=== PATIENT | male | born 1955 | race Caucasian/White ===

== ENCOUNTER 2016-12-30 17:42 | Emergency (ER) | payer OTHER ==
[~2016-12-30 17:42] MED LIST: ACETAMINOPHEN325 MG PO; AMBIEN5 MG PO; ASPIRIN325 MG PO; CERTAGEN1 EACH PO; COUMADIN5 MG PO; DULCOLAX5 MG PO; FEOSOL325 MG PO; FLOMAX0.4 MG PO; HABITROL21 MG TD; IMDUR 30MG TABL30 MG PO; LOVENOX30 MG/0.3 SQ; LYRICA 50MG CAP50 MG PO; MILK OF MA400 MG/5 M PO; NORVASC2.5 MG PO; PERCOCET 5/3251 TAB PO; PRILOSEC20 MG PO; PROSCAR5 MG PO; SENOKOT-S TABL1 EACH PO; SYNTHROID50 MCG PO
[2016-12-30 19:12] LABS: BASOPHIL 0.3 % (0-2); EOSINOPHIL 7.1 % (0-5); HCT 31.1 % (42.0-52.0); HGB 10.3 g/dl (13.2-18.0); LYMPHOCYTE 28.3 % (15-48); MCH 29.4 pg (25.0-31.0); MCHC 33.1 g/dL (32.0-36.0); MCV 88.9 fL (78.0-100.0); MONOCYTE 9.3 % (0-12); MPV 9.7 fL (6.0-9.5); PLT 284 K/uL (150-400); RDW 15.9 % (11.5-14.0)
[2016-12-30 19:14] LABS: WBC 10.6 K/uL (4.0-10.5)
[2016-12-30 19:31] LABS: ALBUMIN 4.1 g/dL (3.5-5.0); BILIRUBIN - TOTAL 0.2 mg/dL (0.1-1.0); CREATININE 1.5 mg/dL (0.7-1.2); GLOBULIN (CALCULATION) 3.9 g/dL (2.2-4.2); POTASSIUM 3.9 mmol/L (3.5-5.1)
== END 2016-12-30 22:55 | disposition home or self-care (01) ==
LOC: FER 17:42
PROVIDERS: Internal Medicine
DX: L03.116 Cellulitis of left lower limb (principal); J44.9 Chronic obstructive pulmonary disease, unspecified; Z95.1 Presence of aortocoronary bypass graft
CPT/HCPCS: 36415; 80053; 85025; 93971

== ENCOUNTER → 2017-03-15 | Day surgery (SDC) | payer OTHER ==
[2017-03-15 06:41] LABS: INR 1.62 (0.9-1.2); PROTHROMBIN TIME 18.7 SECONDS (11.7-14.0); PTT 51.9 SECONDS (23.2-31.4)
== END | disposition home or self-care (01) ==
LOC: FAS 05:47
PROVIDERS: Anesthesiology
DX: M13.852 Other specified arthritis, left hip (principal); E03.9 Hypothyroidism, unspecified; I10 Essential (primary) hypertension; I25.2 Old myocardial infarction; I25.10 Atherosclerotic heart disease of native coronary artery without angina pectoris; F17.210 Nicotine dependence, cigarettes, uncomplicated; F32.9 Major depressive disorder, single episode, unspecified; M19.90 Unspecified osteoarthritis, unspecified site; Z79.899 Other long term (current) drug therapy; Z98.890 Other specified postprocedural states; Z79.82 Long term (current) use of aspirin; Z95.1 Presence of aortocoronary bypass graft; Z86.73 Personal history of transient ischemic attack (TIA), and cerebral infarction without residual deficits
CPT/HCPCS: 36415; 76000; 85610; 85730; J1040; J2704; Q9962

== ENCOUNTER 2017-03-20 15:46 | Day surgery (SDCO) | payer OTHER ==
[~2017-03-20] VITALS: Ht 185.4 cm; Wt 107.5 kg
[2017-03-20 16:18] LABS: BASOPHIL 0.2 % (0-2); EOSINOPHIL 1.3 % (0-5); HCT 30.6 % (42.0-52.0); HGB 10.4 g/dl (13.2-18.0); LYMPHOCYTE 15.4 % (15-48); MCH 29.5 pg (25.0-31.0); MCV 86.9 fL (78.0-100.0); MONOCYTE 9.8 % (0-12); MPV 10.7 fL (6.0-9.5); NEUTROPHIL 73.3 % (41-80); PLT 298 K/uL (150-400); RBC 3.52 M/uL (4.70-6.00); RDW 15.7 % (11.5-14.0)
[2017-03-20 16:21] LABS: WBC 15.8 K/uL (4.0-10.5)
[2017-03-20 16:23] LABS: INR 1.71 (0.9-1.2); PROTHROMBIN TIME 19.5 SECONDS (11.7-14.0); PTT 52.1 SECONDS (23.2-31.4)
[2017-03-20 16:31] LABS: CKMB 2.73 ng/mL (0.97-4.94); MYOGLOBIN 105 ng/mL (26-65); TROPONIN T < 0.010 ng/mL
[2017-03-20 16:32] LABS: ALBUMIN 3.7 g/dL (3.5-5.0); BILIRUBIN - TOTAL 0.5 mg/dL (0.1-1.0); GLOBULIN (CALCULATION) 3.9 g/dL (2.2-4.2); MAGNESIUM 0.78 mg/dL (1.40-2.10); POTASSIUM 3.7 mmol/L (3.5-5.1); TOTAL PROTEIN 7.6 g/dL (6.4-8.3)
[2017-03-20 16:33] LABS: PRO-BNP 486 pg/mL (0-125)
[2017-03-20 16:39] LABS: LACTIC ACID 0.9 mmol/L (0.5-2.2)
[2017-03-20 17:52] LABS: BILIRUBIN NEGATIVE (NEGATIVE); BLOOD 1+ Ery/uL (NEGATIVE); CLARITY CLEAR (CLEAR); COLOR YELLOW (YELLOW); GLUCOSE (U) NORMAL (NORMAL); KETONE (U) NEGATIVE (NEGATIVE); LEUKOCYTES NEGATIVE Leu/uL (NEGATIVE); NITRITE NEGATIVE (NEGATIVE); PROTEIN 1+ mg/dL (NEGATIVE); UROBILINOGEN 0.2 mg/dL (0.2-1.0)
[2017-03-20 17:54] LABS: SQUAMOUS EPITHELIAL CELLS RARE
[2017-03-20 18:03] LABS: AMPHETAMINES NEGATIVE (NEGATIVE); BARBITURATES NEGATIVE (NEGATIVE); BENZODIAZEPINES NEGATIVE (NEGATIVE); COCAINE NEGATIVE (NEGATIVE); MARIJUANA (THC) NEGATIVE (NEGATIVE); METHADONE NEGATIVE (NEGATIVE); TRICYCLIC ANTIDEPRESSANT NEGATIVE (NEGATIVE)
[2017-03-20 23:42] LABS: CKMB 2.37 ng/mL (0.97-4.94); TROPONIN T < 0.010 ng/mL
[2017-03-21 05:50] LABS: BASOPHIL 0.1 % (0-2); EOSINOPHIL 1.5 % (0-5); HCT 29.4 % (42.0-52.0); LYMPHOCYTE 13.2 % (15-48); MCH 29.9 pg (25.0-31.0); MCV 87.8 fL (78.0-100.0); MONOCYTE 10.7 % (0-12); MPV 9.9 fL (6.0-9.5); NEUTROPHIL 74.5 % (41-80); PLT 281 K/uL (150-400); RBC 3.35 M/uL (4.70-6.00); RDW 15.7 % (11.5-14.0); WBC 14.3 K/uL (4.0-10.5)
[2017-03-21 06:08] LABS: INR 1.56 (0.9-1.2); PROTHROMBIN TIME 18.2 SECONDS (11.7-14.0)
[2017-03-21 06:19] LABS: CREATININE 1.7 mg/dL (0.7-1.2); POTASSIUM 3.9 mmol/L (3.5-5.1)
[2017-03-22 04:20] LABS: INR 1.43 (0.9-1.2)
[2017-03-22 04:49] LABS: CREATININE 1.5 mg/dL (0.7-1.2); POTASSIUM 5.2 mmol/L (3.5-5.1)
--- NOTE | 2017-03-22 09:41 | NUR ---
REPORT GIVEN TO EMS. PTS VITALS STABLE AT THIS TIME.
== END 2017-03-22 09:40 | disposition other institution (70) ==
LOC: FER 15:46 → FICU 19:40 → FTCU 03-21 14:39
PROVIDERS: Internal Medicine; Internal Medicine Cardiovascular Disease; Nurse Practitioner; ADMIT Internal Medicine Nephrology
DX: R07.89 Other chest pain (principal); I25.10 Atherosclerotic heart disease of native coronary artery without angina pectoris; Z95.1 Presence of aortocoronary bypass graft; Z95.5 Presence of coronary angioplasty implant and graft; Z79.01 Long term (current) use of anticoagulants; N17.9 Acute kidney failure, unspecified; I12.9 Hypertensive chronic kidney disease with stage 1 through stage 4 chronic kidney disease, or unspecified chronic kidney disease; N18.3 Chronic kidney disease, stage 3 (moderate); I73.9 Peripheral vascular disease, unspecified; M54.2 Cervicalgia; N40.0 Benign prostatic hyperplasia without lower urinary tract symptoms; E03.9 Hypothyroidism, unspecified; G89.4 Chronic pain syndrome; J44.9 Chronic obstructive pulmonary disease, unspecified; F17.210 Nicotine dependence, cigarettes, uncomplicated; E87.5 Hyperkalemia; Z86.73 Personal history of transient ischemic attack (TIA), and cerebral infarction without residual deficits; Z87.01 Personal history of pneumonia (recurrent); Z96.641 Presence of right artificial hip joint; Z82.49 Family history of ischemic heart disease and other diseases of the circulatory system
CPT/HCPCS: 36415; 70450; 71010; 72125; 80048; 80053; 80305; 81001; 82550; 82553; 83036; 83605; 83735; 83874; 83880; 84484; 85025; 85610; 85730; 87040; 93005; G0378; J0610; J2270; J2930

== ENCOUNTER → 2020-10-22 | Day surgery (SDC) | payer OTHER ==
[~2020-10-22] MED LIST changes: +AMLODIPINE BESY10 MG PO; +ASA-BUTALB-CAF1 EACH PO; +ASPIRIN EC81 MG PO; -ASPIRIN325 MG PO; +ATORVASTATIN CA80 MG PO; +BUMEX1 MG PO; +D3-20002000 UNIT PO; +ELIQUIS2.5 MG PO; +FAMOTIDINE40 MG PO; +FENOFIBRATE145 MG PO; +LEXAPRO 10MG TA10 MG PO; +LIPITOR40 MG PO; +LOPRESSOR25 MG PO; +MAG-OXIDE 400M400 MG PO; +METOPROLOL TAR100 MG PO; +NITROGLYCERIN0.4 MG SL; +NORVASC5 MG PO; +OCUVITE ADULT1 EAC1 PO; +PEPCID AC20 MG PO; +PERCOCET 10/321 EACH PO; +PERCOCET 7.5/321 TAB PO; +VITAMIN D325 MC2 PO; +XARELTO15 MG PO; +[UNRECOGNIZED DRUG - OTHER]
== END | disposition home or self-care (01) ==
LOC: FAS 11:40
DX: H26.493 Other secondary cataract, bilateral (principal); E11.9 Type 2 diabetes mellitus without complications; M19.90 Unspecified osteoarthritis, unspecified site; I11.0 Hypertensive heart disease with heart failure; I50.9 Heart failure, unspecified; E07.9 Disorder of thyroid, unspecified; F17.210 Nicotine dependence, cigarettes, uncomplicated; Z79.01 Long term (current) use of anticoagulants; Z79.82 Long term (current) use of aspirin; Z79.899 Other long term (current) drug therapy; Z91.030 Bee allergy status; Z98.41 Cataract extraction status, right eye; Z98.42 Cataract extraction status, left eye; Z96.1 Presence of intraocular lens

== ENCOUNTER → 2020-12-17 | Day surgery (SDC) | payer OTHER | END | disposition home or self-care (01) | LOC: FAS 11-19 13:15 | DX: H26.491 Other secondary cataract, right eye (principal); F17.210 Nicotine dependence, cigarettes, uncomplicated; Z91.030 Bee allergy status ==

== ENCOUNTER → 2021-02-08 | Day surgery (SDC) | payer OTHER ==
[2021-02-08 09:07] LABS: BUN/CREAT RATIO (CALC) 12.3 RATIO; CREATININE 1.62 mg/dL (0.67-1.17); POTASSIUM 4.1 mmol/L (3.5-5.1)
== END | disposition home or self-care (01) ==
LOC: FAS 07:48
PROVIDERS: Anesthesiology
DX: K80.10 Calculus of gallbladder with chronic cholecystitis without obstruction (principal); K43.0 Incisional hernia with obstruction, without gangrene; K66.0 Peritoneal adhesions (postprocedural) (postinfection); K21.9 Gastro-esophageal reflux disease without esophagitis; K57.92 Diverticulitis of intestine, part unspecified, without perforation or abscess without bleeding; I13.0 Hypertensive heart and chronic kidney disease with heart failure and stage 1 through stage 4 chronic kidney disease, or unspecified chronic kidney disease; I50.9 Heart failure, unspecified; I25.10 Atherosclerotic heart disease of native coronary artery without angina pectoris; I48.91 Unspecified atrial fibrillation; N18.30 Chronic kidney disease, stage 3 unspecified; M85.89 Other specified disorders of bone density and structure, multiple sites; M19.90 Unspecified osteoarthritis, unspecified site; F41.9 Anxiety disorder, unspecified; F17.210 Nicotine dependence, cigarettes, uncomplicated; Z20.822 Contact with and (suspected) exposure to COVID-19; Z95.1 Presence of aortocoronary bypass graft; Z91.030 Bee allergy status; Z79.899 Other long term (current) drug therapy; Z98.890 Other specified postprocedural states; Z95.828 Presence of other vascular implants and grafts; Z87.19 Personal history of other diseases of the digestive system; Z96.649 Presence of unspecified artificial hip joint
CPT/HCPCS: 36415; 80048; 93005; J0690; J1100; J1644; J2250; J2405; J2704; J2710; J3010; J7120